=== PATIENT | female | born 1990 | race Caucasian/White ===

== ENCOUNTER 2017-08-23 10:07 | Emergency (ER) | payer BC ==
[~2017-08-23] VITALS: Ht 162.6 cm; Wt 64.0 kg
[2017-08-23 10:11] VITALS: TEMP 36.8; Ht 162.6 cm; Wt 64.0 kg
[2017-08-23] MEDS ORDERED: TRAZ50TA35 PO (10:44)
--- NOTE | 2017-08-23 10:45 | EMERGENCY ROOM VISIT NOTE ---
History Report prepared by Nila: Kym Sidhu Under the Supervision of: Dr. Ilan Stevenson M.D. First contact with patient: 10:16 Chief Complaint: URINARY SYMPTOMS Stated Complaint: PAINFUL URINATION, BACK PAIN, FEVER, CHILLS Nursing Triage Summary: Pt reports bilateral flank pain that started yesterday, had chills through the night. Feels like she is not emptying her bladder the whole way. Hx of UTI. Ibuprofen at 0800 History of Present Illness The patient is a 27 year old female who presents to the Emergency Room with complaints of persistent urinary symptoms that began last night. Patient states she began having pain last night in her bilateral flanks that progressively worsened this morning. The patient notes she woke up several times during the night due to cold sweats, frequent urination, and abdominal pain aside from the lower back pain. She currently rates her discomfort as a 2/10 in severity. The patient denies any chest pain, shortness of breath, nausea, vomiting, or pain and swelling in legs. She notes a history of kidney infections, noting that she often ignores her urinary symptoms, which then causes her kidney infections. She states that she took 600mg ibuprofen prior to arrival for subjective fever. The patient states she takes trazodone for sleep/depression. She notes that she is a smoker, but does not consume alcohol. 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 Source of History: patient Onset: last night Position: other (global ) Symptom Intensity: 2/10 Quality: other (urinary symptoms) Timing: other (persistent) Associated Symptoms: + fevers (subjective), + abdominal pain, + urinary symptoms (frequent urination), No chest pain, No SOB, No nausea, No vomiting Note: Associated Symptoms: cold sweats Review of Systems See HPI for pertinent positives & negatives. A total of 10 systems reviewed and were otherwise negative. Past Medical & Surgical Medical Problems: (1) No Known Active Medical Problems (2) Tonsillectomy Old medical records were reviewed. Nurse's notes were reviewed and I agree with. Family History Diabetes mellitus FHx: cancer Hypertension Kidney disease Kidney stones Social History Smoking Status: Current Some Day Smoker Smokeless Tobacco Use: No Alcohol Use: none Drug Use: none Marital Status: single Housing Status: lives with family Occupation Status: employed Current/Historical Medications Scheduled Nitrofurantoin Monohyd Macrocr (Macrobid), 100 MG PO BID Trazodone Hcl (Trazodone), 50 MG PO HS Allergies Coded Allergies: No Known Allergies (Unverified , 08/23/17) Physical Exam Vital Signs Date Time Temp Pulse Resp B/P (MAP) Pulse Ox O2 Delivery O2 Flow Rate FiO2 08/23/17 11:00 74 20 113/54 98 08/23/17 10:11 36.8 86 18 119/74 100 Room Air Physical Exam General: Non-ill appearing young female in no acute distress. HEENT: Normal cephalic atraumatic. Pupils are equal round and reactive to light. Extraocular movements are intact. Oropharynx is pink with moist mucous membranes. No swelling of the mouth lips or tongue. Neck: Supple with a midline trachea. No meningeal signs or stiffness, no JVD or bruits. No Stridor. Chest: Clear to auscultation bilaterally. No wheezes or rhonchi. No increased work of breathing. Heart: regular rate and rhythm. Abdomen: Soft minimal tenderness to the lower abdomen, slightly to the left, nondistended without rebound guarding or rigidity. Extremities: No cyanosis clubbing or edema. No calf tenderness or assymetry Spine/Back. Non tender to palpation. No CVA tenderness Skin: Good turgor without rashes. Neurologic exam: Cranial nerves two through 12 are intact. Motor and sensation are intact and symmetrical throughout. Medical Decision & Procedures Laboratory Results Test 08/23/17 10:26 Urine Color DK YELLOW Urine Appearance CLOUDY (CLEAR) Urine pH 6.5 (4.5-7.5) Urine Specific [place] 1.008 (1.000-1.030) Urine Protein NEG (NEG) Urine Glucose (UA) NEG (NEG) Urine Ketones NEG (NEG) Urine Occult Blood 1+ (NEG) Urine Nitrite POS (NEG) Urine Bilirubin NEG (NEG) Urine Urobilinogen NEG (NEG) Urine Leukocyte Esterase LARGE (NEG) Urine WBC (Auto) >30 /hpf (0-5) Urine RBC (Auto) 0-4 /hpf (0-4) Urine Hyaline Casts (Auto) 1-5 /lpf (0-5) Urine Epithelial Cells (Auto) >30 /lpf (0-5) Urine Bacteria (Auto) 4+ (NEG) Urine Test NEG (NEG) Laboratory studies as stated above per my review. Medications Administered Medications (Trade) Dose Ordered Sig/Nehal Route Start Time Stop Time Status Last Admin Dose Admin Nitrofurantoin Macrocrystals (Macrobid Cap) 100 mg NOW STAT PO 08/23/17 10:49 08/23/17 10:50 DC 08/23/17 10:56 100 MG ED Course 1017: Past medical records reviewed. The patient was evaluated in room B8, and a complete history and physical examination were performed. 1049: I reevaluated the patient and she is resting comfortably. I discussed the exam findings with her and I discussed the treatment plan. She verbalized complete understanding and agreement. She is ready to go home. Ordered Macrobid Cap 100 mg PO. Medical Decision Differentials include, but are not limited to; UTI, , kidney stone, kidney infection This patient comes in as described above. She was placed in room B8. She has been having urinary symptoms as a history of UTI. Clinically, she does not have pyelonephritis. She is nontoxic and non-lethargic. test was negative. Her urinalysis does suggest a UTI with a culture pending. I will start on Macrobid twice a day for 7 days. She should rest and drink plenty fluids. return if: fever, worsening of symptoms, any new problems or concerns. She was happy with the plan and discharged to home. Medication Reconcilliation Current Medication List: was personally reviewed by me Impression Primary Impression: Urinary tract infection Scribe Attestation The scribe's documentation has been prepared under my direction and personally reviewed by me in its entirety. I confirm that the note above accurately reflects all work, treatment, procedures, and medical decision making performed by me. Departure Information Dispostion Home / Self-Care Prescriptions Nitrofurantoin Monohyd Macrocr (Macrobid) 100 Mg Cap 100 MG PO BID for 7 Days, #14 CAP Prov: Ilan Stevenson M.D. 08/23/17 Referrals No Doctor, Assigned (PCP) Forms HOME CARE DOCUMENTATION FORM, IMPORTANT VISIT INFORMATION Patient Instructions My [facility] Additional Instructions Rest. Drink plenty of fluids. Use Macrobid 100 mg twice a day for 7 daysantibiotic Return to the ER if: Worsening of symptoms, not tolerating fluids, fever, increasing pain, any new problems or concerns Follow-up with your doctor on Saturday for recheck or return to the ER over the weekend if symptoms worsen
[2017-08-23 10:46] LABS: URINE APPEARANCE CLOUDY (CLEAR); URINE BILIRUBIN NEG (NEG); URINE COLOR DK YELLOW; URINE EPITHELIAL CELL AUTO >30 /lpf (0-5); URINE NITRITE POS (NEG); URINE PH 6.5 (4.5-7.5); URINE SPECIFIC GRAVITY 1.008 (1.000-1.030); UROBILINOGEN NEG (NEG)
[2017-08-23] MEDS ORDERED: NITROFURANTOIN MONOHYDRATE 100 MG CAP PO STA (10:49)
[2017-08-23] MEDS ORDERED: NITR-5 PO (10:51)
[2017-08-23 11:00] VITALS: BP 113/54; PULSE 74; O2SAT 98
[2017-08-23 11:03] LABS: MANUAL MICROSCOPIC REQUIRED? NO; REVIEW REQ? NO
== END 2017-08-23 11:03 | disposition home or self-care (01) ==
LOC: C.EDB 10:08
DX: N39.0 Urinary tract infection, site not specified (principal); F17.210 Nicotine dependence, cigarettes, uncomplicated; F32.9 Major depressive disorder, single episode, unspecified; Z83.3 Family history of diabetes mellitus; Z80.9 Family history of malignant neoplasm, unspecified; Z82.49 Family history of ischemic heart disease and other diseases of the circulatory system; Z84.1 Family history of disorders of kidney and ureter; Z79.899 Other long term (current) drug therapy